=== PATIENT | male | born 1960 | race Caucasian/White ===

== ENCOUNTER 2016-12-26 10:34 | Emergency (ER) | payer MEDICARE ==
--- NOTE | 2016-12-26 10:41 | ED ---
Respiratory - HPI Summary HPI Summary: 56 YEAR OLD MALE WITH COPD/SMOKER PRESENTS WITH COMPLAINS OF LEFT SIDED CHEST PAIN . EKG SHOWED ST ELEVATION IN THE INFERIOR LEADS SO WE WILL CALL EMS TO BRING HIM TO [facility] [place] AND RULE OUT CO. - History of Current Complaint Stated Complaint: COUGH,CHEST/RIB PAIN Time Seen by Provider: 12/26/16 10:41 Onset/Duration: Sudden Onset Initial Severity: Moderate Current Severity: Moderate Sputum Amount: None Aggravating Factor(s): Nothing Alleviating Factor(s): Nothing - Allergy/Home Medications Allergies/Adverse Reactions: Allergies Allergy/AdvReac Type Severity Reaction Status Date / Time No Known Allergies Allergy Verified 12/26/16 10:48 Home Medications: Home Medications Apixaban* [Eliquis*] 5 mg PO BID 12/26/16 [History Confirmed 12/26/16] Pantoprazole Sodium [Protonix] 20 mg PO DAILY 12/26/16 [History Confirmed ] Ranitidine HCl [Zantac] 300 mg PO QPM 12/26/16 [History Confirmed 12/26/16] rOPINIRole TAB* [Requip*] 4 mg PO DAILY 12/26/16 [History Confirmed 12/26/16] PMH/Surg Hx/FS Hx/Imm Hx Previously Healthy: Yes Endocrine/Hematology History: Denies: Hx Diabetes Cardiovascular History: Denies: Hx Congestive Heart Failure, Hx Hypertension Respiratory History: Reports: Other Respiratory Problems/Disorders - LUNG CA History: Denies: Hx Renal Disease - Cancer History Cancer Type, Location and Year: LUNG CA - Social History Alcohol Use: Occasionally Substance Use Type: Reports: None Smoking Status (MU): Heavy Every Day Tobacco Smoker Review of Systems Constitutional: Negative Eyes: Negative ENT: Negative Positive: Chest Pain Respiratory: Negative Gastrointestinal: Negative Genitourinary: Negative Musculoskeletal: Negative All Other Systems Reviewed And Are Negative: Yes Physical Exam Triage Information Reviewed: Yes Vital Signs Reviewed: Yes Appearance: Positive: Ill-Appearing Eyes: Positive: Normal ENT: Positive: Normal ENT inspection Neck: Positive: Supple Respiratory/Lung Sounds: Positive: Clear to Auscultation Cardiovascular: Positive: Tachycardia Abdomen Description: Positive: Nontender Bowel Sounds: Positive: Present Musculoskeletal: Positive: Normal Neurological: Positive: Normal Disposition - Diagnoses Provider Diagnoses: Chest pain Discharge - Discharge Plan Condition: Guarded Disposition: TRANS [facility] CARE FAC Referrals: Non Staff,Doctor [Primary Care Provider] - Additional Instructions: PATIENT TRANSFERED TO [facility] BY EMS
[2016-12-26] MEDS ORDERED: Albuterol/Ipratropium NEB.SOL* Albuterol 2.5 MG/Ipratropium 0.5 MG 3 ML INH ONE (10:44)
[2016-12-26] MEDS ORDERED: predniSONE TAB* 20 MG PO ONE (10:45)
[2016-12-26] MEDS ORDERED: NS 0.9% 1000 ML* 1,000 ML IV ONE (10:56)
[2016-12-26] MEDS ORDERED: Aspirin Low Dose CHEW TAB* 81 MG ONE (11:08)
[2016-12-26] MEDS ORDERED: Aspirin Low Dose CHEW TAB* 81 MG PO ONE (11:11)
[2016-12-26] MEDS ORDERED: Nitroglycerin TAB 0.4 MG* 0.4 MG TAB SL ONE (11:11)
[2016-12-26 11:22] VITALS: BP 135/97
== END 2016-12-26 11:19 | disposition short-term general hospital (02) ==
LOC: UCCORT 10:34
DX: R07.9 Chest pain, unspecified (principal); J44.9 Chronic obstructive pulmonary disease, unspecified; Z72.0 Tobacco use
CPT/HCPCS: 93005; 99214; A9270-GY; G0463

== ENCOUNTER 2016-12-26 12:01 | Emergency (ER) | payer MEDICARE ==
[2016-12-26] MEDS ORDERED: Aspirin Low Dose CHEW TAB* 81 MG PO ONE (12:40)
[2016-12-26] MEDS ORDERED: Nitroglycerin TAB 0.4 MG* 0.4 MG TAB SL ONE (12:44)
--- NOTE | 2016-12-26 13:43 | RAD ---
HISTORY: Chest pain COMPARISONS: CT dated October 16, 2014 VIEWS: 1: frontal portable view of the chest at 1:13 PM FINDINGS: LINES AND TUBES: None. CARDIOMEDIASTINAL SILHOUETTE: Again noted is a right paramediastinal density corresponding to the areas of fibrosis of the right upper lung on the previous examination. Accounting for differences in technique, this is stable. PLEURA: The costophrenic angles are sharp. No pleural abnormalities are noted. LUNG PARENCHYMA: The lungs are clear. ABDOMEN: The upper abdomen is clear. There is no subphrenic gas. BONES AND SOFT TISSUES: No bone or soft tissue abnormalities are noted. IMPRESSION: STABLE DENSITY ALONG THE RIGHT UPPER MEDIASTINUM, UNCHANGED FROM CT DATED OCTOBER 16, 2014.
[2016-12-26] MEDS ORDERED: Ondansetron INJ* 2 MG/ML VIAL IV ONE (15:07)
[2016-12-26] MEDS ORDERED: Morphine INJ* 4 MG/ML 1 ML SYRINGE IV ONE (15:07)
[2016-12-26 15:08] LABS: Hematocrit 45 % (42-52); Hemoglobin 14.8 g/dl (14.0-18.0); Mean Corpuscular HGB Conc 33 g/dl (31-36); Mean Corpuscular Hemoglobin 29 pg (27-31); Mean Corpuscular Volume 88 fL (80-94); Mean Platelet Volume 11 um3 (7.4-10.4); Red Blood Count 5.13 10^6/ul (4.0-5.4); Red Cell Distribution Width 16 % (10.5-15); White Blood Count 7.6 10^3/ul (3.5-10.8)
[2016-12-26 15:17] LABS: Albumin 3.9 g/dL (3.2-5.2); Calcium 8.9 mg/dL (8.6-10.3); EGFR African American 131.9 (>60); EGFR Non-African American 102.6 (>60); Globulin 2.6 g/dL (2-4); Potassium 4.1 mmol/L (3.5-5.0); Total Bilirubin 0.6 mg/dL (0.2-1.0); Total Protein 6.5 g/dL (6.4-8.9)
[2016-12-26] MEDS ORDERED: Iohexol 350* (CONTRAST) 500 ML MDV IV ONE (15:35)
[2016-12-26 16:42] VITALS: BP 109/69
--- NOTE | 2016-12-26 16:44 | RAD ---
Indication: Pleuritic chest pain. Contrast: Administered 81.1 ml of OMNIPAQUE 350 mg/ml CTA of the chest was performed after IV contrast administration. Coronal and sagittal reconstructed images were obtained. The pulmonary arterial tree is well opacified. There are no filling defects present to suggest pulmonary embolus. The trachea and major bronchi appear patent. There is consolidation in the posterior superior segment of the right upper lobe posteriorly. This is likely due to post radiation change. This was present on previous exam of July 21, 2011. No definite alveolar consolidation is noted. No pleural fluid is identified. There is nonspecific peripheral nodule in the right lower lobe in the right costophrenic angle which was present previously on October 16, 2014. The axilla demonstrates no evidence of abnormal adenopathy. The visualized abdominal organs are unremarkable. There is a hernia of the left lobe of liver to be adjacent to the heart. This is consistent with Morgagni type hernia. A small pericardial effusion is noted. 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 Post radiation changes in the posterior medial right upper lobe. Persistent likely benign nodule in the right costophrenic angle. No new lesions are noted.
[2016-12-26] MEDS ORDERED: Albuterol/Ipratropium NEB.SOL* Albuterol 2.5 MG/Ipratropium 0.5 MG 3 ML INH ONE (17:08)
[2016-12-26] MEDS ORDERED: Ketorolac INJ* 30 MG/ML 1 ML VIAL IV PUSH ONE (17:09)
[2016-12-26] MEDS ORDERED: methylPREDNISolone 125 MG* 2 ML VIAL IV ONE (17:30)
--- NOTE | 2017-01-04 12:04 | ED ---
Kerri Bui Thomas, scribed for Nimesh Portillo MD on 12/26/16 at 1250 . HPI Chest Pain - HPI Summary HPI Summary: The pt is a 56 y/o M BIB [place] [facility] [place] c/o R-sided intermittent CP that began weeks ago but has worsened over the last week. The CP radiates to his back and is reproducible. The pt rates the pain 10/10 when he coughs and 5/10 at baseline. The pain is aggravated by deep breaths and movement. 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 He also took 4 pills of ASA 81mg. Pt additionally c/o productive painful cough (yellow phlegm). He is on Eliquis and Rantodine. He drove 16 hours from [place] three days ago without stopping. PMHx: lung CA (Dx 2005, right lung, treated with radiation therapy and chemotherapy, Dr. Liu is his oncologist), pleurisy, A-Fib, cardiac tamponade (2015, [facility] PSHx: pericardiocentesis. SHx: smoking, occasional alcohol use, no illicit drug use. FHx: arrhythmia. He is accompanied by four family members. - History of Current Complaint Chief Complaint: EDChestPainROMI Time Seen by Provider: 12/26/16 12:29 Hx Obtained From: Patient, Family/Hose Maker - four family members in room Onset/Duration: Started Weeks Ago, Still Present, Worse Since - last week Timing: Intermittent Pain Intensity: 5 - 10/10 at worst Pain Scale Used: 0-10 Numeric Chest Pain Location: Discrete at: - R-sided Chest Pain Radiates: Yes Chest Pain Radiates To:: Back Aggravating Factor(s): Movement, Deep Breaths Alleviating Factor(s): NTG 123 Associated Signs and Symptoms: Positive: Chest Pain, Productive Cough - yellow phlegm, painful - Allergy/Home Medications Allergies/Adverse Reactions: Allergies Allergy/AdvReac Type Severity Reaction Status Date / Time No Known Allergies Allergy Verified 12/26/16 10:48 PMH/Surg Hx/FS Hx/Imm Hx Previously Healthy: No Endocrine/Hematology History: Denies: Hx Diabetes Cardiovascular History: Denies: Hx Congestive Heart Failure, Hx Hypertension Respiratory History: Reports: Hx Chronic Obstructive Pulmonary Disease (COPD), Other Respiratory Problems/Disorders - LUNG CA, Pleurisy History: Denies: Hx Renal Disease - Cancer History Cancer Type, Location and Year: LUNG CA Infectious Disease History: Yes Infectious Disease History: Denies: Traveled Outside the [place] in Last 30 Days - Family History Known Family History: Positive: Other - POS: arrythmia - Social History Alcohol Use: Occasionally Substance Use Type: Reports: None Smoking Status (MU): Heavy Every Day Tobacco Smoker Review of Systems Negative: Fever, Chills Negative: Erythema - eyes Negative: Sore Throat Positive: Chest Pain - onset weeks ago but worse in the last week Positive: Cough - productive, painful, yellow phlegm. Negative: Shortness Of Breath Negative: Abdominal Pain, Diarrhea, Nausea Negative: dysuria, hematuria Negative: Myalgia, Edema - leg Negative: Rash Neurological: Other - NEG: dizziness All Other Systems Reviewed And Are Negative: Yes Physical Exam - Summary Physical Exam Summary: Constitutional: Well-developed, Well-nourished, Alert, Active, Social smile present. (-) Distressed, (-) Diaphoretic HENT: Anterior fontanelle flat, Right TM normal and Left TM normal, Normal nose , Mucous membranes moist, Dentition normal, Oropharynx clear. (-) Cranial deformity Eyes: Conjunctiva normal, EOM intact, PERRL. (-) Left and right eye discharge Neck: ROM normal, Neck supple. (-) Cervical adenopathy Cardio: Rhythm regular, rate normal, Heart sounds normal, S1 normal, S2 normal, Intact distal pulses, Pulses strong. (-) Murmur Pulmonary/Chest wall: Effort normal, Diffuse wheezing, worse on the right than the left. There are rhonchi. (-) Retraction, (-) Respiratory distress, (-) Rales , (-) Stridor, (-) Nasal flaring Abd: Soft. (-) Distension, (-) Tenderness, (-) Guarding, (-) Rebound, (-) Hepatosplenomegaly, (-) Mass Musculoskeletal: Normal ROM. (-) Edema Lymph: (-) Cervical adenopathy Neuro: Alert Skin: Warm, Dry. (-) Rash, (-) Purpura, (-) Diaphoresis, (-) Petechiae, (-) Cyanosis Triage Information Reviewed: Yes Vital Signs On Initial Exam: Initial Vitals Temp Pulse Resp Pulse Ox 98.5 F 95 18 93 12/26/16 12:03 12/26/16 12:03 12/26/16 12:03 12/26/16 12:03 Vital Signs Reviewed: Yes - Radha Coma Scale Coma Scale Total: 15 Diagnostics - Vital Signs Vital Signs Temp Pulse Resp BP Pulse Ox 12/26/16 12:22 95 21 97 12/26/16 12:06 98.2 F 96 22 116/71 94 12/26/16 12:03 98.5 F 95 18 93 - Laboratory Result Diagrams: 12/26/16 12:15 12/26/16 12:15 Lab Statement: Any lab studies that have been ordered have been reviewed, and results considered in the medical decision making process. - Radiology CXR Xray Interpretation: Positive (See Comments) - CXR reveals STABLE DENSITY ALONG THE RIGHT UPPER MEDIASTINUM, UNCHANGED FROM CT DATED OCTOBER 16, 2014. ED physician has reviewed this radiology report and agrees. 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 Post radiation changes in the posterior medial right upper lobe. Persistent likely benign nodule in the right costophrenic angle. No new lesions are noted. ED physician has reviewed this radiology report and agrees. CT Interpretation Completed By: Radiologist - EKG 12:19 Cardiac Rate: NL - 94 BPM EKG Interpretation: ST elevations between 0.5 and 1 mm in II, III, and aVL leads Chest Pain Course/Dx - Course Assessment/Plan: The pt is a 56 y/o M BIB EMS from [facility] [place] c/o R-sided intermittent CP that began weeks ago but has worsened over the last week. The CP radiates to his back and is reproducible. The pt rates the pain 10/10 when he coughs and 5/10 at baseline. The pain is aggravated by deep breaths and movement. 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 He also took 4 pills of ASA 81mg. Pt additionally c/o productive painful cough (yellow phlegm). He is on Eliquis and Rantodine. He drove 16 hours from [place] three days ago without stopping. PMHx: lung CA (Dx 2005 , right lung, treated with radiation therapy and chemotherapy, Dr. Liu is his oncologist), pleurisy, A-Fib, cardiac tamponade (2016, [facility]). PSHx : pericardiocentesis. SHx: smoking, occasional alcohol use, no illicit drug use. FHx: arrhythmia. He is accompanied by four family members. In the ED course the patient was given ASA, Duoneb, Toradol, Morhpine, Zofran, Solu-Medrol , and NTG. Bloodwork shows BNP 103, troponin 0.00. EKG at 12:[address] elevations. 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 Post radiation changes in the posterior medial right upper lobe. Persistent likely benign nodule in the right costophrenic angle. No new lesions are noted. ED physician has reviewed this radiology report and agrees. CXR reveals STABLE DENSITY ALONG THE RIGHT UPPER MEDIASTINUM, UNCHANGED FROM CT DATED OCTOBER 16, 2014. ED physician has reviewed this radiology report and agrees. I consulted with Dr. Sanchez, cardiology, regarding patient care. The patient is diagnosed with pericardial effusion and bronchitis. He is diagnosed home and is stable. He was given follow up to cardiology and [facility] physician referral service. - Diagnoses Provider Diagnoses: Pericardial effusion, Bronchitis - Provider Notifications Discussed Care Of Patient With: Jimi Sanchez Time Discussed With Above Provider: 13:06 Instructed by Provider To: Other - I consulted with Dr. Sanchez, cardiology, regarding patient care at 13:06 Discharge - Discharge Plan Condition: Stable Disposition: HOME Patient Education Materials: Pericardial Effusion (ED), Acute Bronchitis (ED) Referrals: [facility] PHYSICIAN REFERRAL [Outside] - 7 Days Rajat Navarro MD [Medical Doctor] - 3 Days Additional Instructions: RETURN TO THE EMERGENCY DEPARTMENT FOR CHANGING OR WORSENING SYMPTOMS The documentation as recorded by the Kerri ruiz Thomas accurately reflects the service I personally performed and the decisions made by me, Nimesh Portillo MD.
== END 2016-12-26 17:59 | disposition home or self-care (01) ==
LOC: ED 12:01
DX: I31.3 Pericardial effusion (noninflammatory) (principal); J40 Bronchitis, not specified as acute or chronic; Z85.118 Personal history of other malignant neoplasm of bronchus and lung; Z92.3 Personal history of irradiation; J44.9 Chronic obstructive pulmonary disease, unspecified; Z72.0 Tobacco use
CPT/HCPCS: 36415; 71010; 71275; 80053; 83880; 84484; 85025; 87040; 93005; 94640; 96374; 96375; 99284; A9270-GY; J1885; J2270; J2405; J2930; Q9967

== ENCOUNTER 2017-01-07 10:15 | Emergency (ER) | payer MEDICARE ==
[2017-01-07 10:36] VITALS: BP 109/70
[2017-01-07] MEDS ORDERED: Morphine INJ* 2 MG/ML 1 ML CARPUJECT IV ONE ×2 (11:06→11:08)
--- NOTE | 2017-01-07 11:06 | ED ---
HPI Chest Pain - HPI Summary HPI Summary: 56 yr old male with the complaint of chest pain. Onset of pain over a week ago , and pain is pleuritic, with sob, and worsening symptoms the past week. He feels weak, tired, SOB, and pain is 9/10, worse with breathing. He was seen in the [facility] ER on December 26 and diagnosed with pericardial effusion, and hernia containing liver near his heart. he has a history of lung cancer. His doctors are at [facility] in [place] including oncology, cardiology. The patient is requesting to go to [facility] by ambulance from here. - History of Current Complaint Chief Complaint: UCChestPain Time Seen by Provider: 01/07/17 10:42 - Allergy/Home Medications Allergies/Adverse Reactions: Allergies Allergy/AdvReac Type Severity Reaction Status Date / Time No Known Allergies Allergy Verified 01/07/17 10:37 PMH/Surg Hx/FS Hx/Imm Hx Endocrine/Hematology History: Denies: Hx Diabetes Cardiovascular History: Denies: Hx Congestive Heart Failure, Hx Hypertension Respiratory History: Reports: Hx Chronic Obstructive Pulmonary Disease (COPD), Other Respiratory Problems/Disorders - LUNG CA, Pleurisy History: Denies: Hx Renal Disease - Cancer History Cancer Type, Location and Year: LUNG CA - Surgical History Surgery Procedure, Year, and Place: peptic ulcer, cardiac effusion drainage opening present Infectious Disease History: No Infectious Disease History: Denies: Traveled Outside the [place] in Last 30 Days - Family History Known Family History: Positive: Other - POS: arrythmia - Social History Alcohol Use: Occasionally Alcohol Amount: 2-3 beers when drinking Substance Use Type: Reports: None Smoking Status (MU): Heavy Every Day Tobacco Smoker Review of Systems Positive: Chest Pain, Other - per he at times seems to pass out and eyes roll back in head Positive: Shortness Of Breath All Other Systems Reviewed And Are Negative: Yes Physical Exam Triage Information Reviewed: Yes Vital Signs On Initial Exam: Initial Vitals Temp Pulse Resp BP Pulse Ox 98.1 F 97 24 109/70 98 01/07/17 10:24 01/07/17 10:24 01/07/17 10:24 01/07/17 10:24 01/07/17 10:24 Vital Signs Reviewed: Yes Appearance: Positive: Pain Distress Skin: Positive: Warm, Skin Color Reflects Adequate Perfusion Head/Face: Positive: Normal Head/Face Inspection Eyes: Positive: EOMI ENT: Negative: Muffled/hoarse voice Neck: Positive: Supple Respiratory/Lung Sounds: Positive: Clear to Auscultation, Breath Sounds Present , Other - appear mildy dyspneic. Negative: Stridor Cardiovascular: Positive: RRR. Negative: Murmur Abdomen Description: Positive: Nontender Neurological: Positive: Sensory/Motor Intact, Alert, Oriented to Person Place, Time, CN Intact II-III Psychiatric: Positive: Anxious Diagnostics - Vital Signs Vital Signs Temp Pulse Resp BP Pulse Ox 01/07/17 10:24 98.1 F 97 24 109/70 98 - Laboratory Lab Statement: Any lab studies that have been ordered have been reviewed, and results considered in the medical decision making process. Chest Pain Course/Dx - Course Course Of Treatment: 56 yr old male who never followed up with Cardiology as planned 3 days after discharge from the ED on Dec. He appears a little SOB and in pain. He has a known pericardial effusion on CT and has had effusion drained in prior year. He has an EKG that is not changed compared to tracing from December 26 of this year. case Discussed with Dr Handley at [facility]. The patient requested to go to [facility] as his doctors are there including oncology, cardiology. He will need at the least an echocardiogram and cardiology consultation. - Diagnoses Provider Diagnoses: Chest pain, Pericardial effusion Discharge - Discharge Plan Condition: Good Disposition: TRANS [facility] CARE FAC
[2017-01-07] MEDS ORDERED: NS 0.9% 1000 ML* 1,000 ML IV ONE (11:07)
[2017-01-07] MEDS ORDERED: Morphine INJ* 2 MG/ML 1 ML CARPUJECT ONE (11:25)
== END 2017-01-07 11:35 | disposition short-term general hospital (02) ==
LOC: UCCORT 10:15
DX: I31.3 Pericardial effusion (noninflammatory) (principal); R07.9 Chest pain, unspecified; I10 Essential (primary) hypertension; I50.9 Heart failure, unspecified; J44.9 Chronic obstructive pulmonary disease, unspecified; F17.200 Nicotine dependence, unspecified, uncomplicated; Z85.118 Personal history of other malignant neoplasm of bronchus and lung
CPT/HCPCS: 93005; 96372; 96374; 99213; G0463; J2270

== ENCOUNTER 2017-01-07 12:18 | Inpatient (IN) | payer MEDICARE ==
[2017-01-07] MEDS ORDERED: Aspirin Low Dose CHEW TAB* 81 MG PO ONE (12:22)
[2017-01-07 12:46] LABS: Hematocrit 45 % (42-52); Hemoglobin 14.7 g/dl (14.0-18.0); Mean Corpuscular HGB Conc 32 g/dl (31-36); Mean Corpuscular Hemoglobin 29 pg (27-31); Mean Corpuscular Volume 89 fL (80-94); Mean Platelet Volume 10 um3 (7.4-10.4); Red Blood Count 5.12 10^6/ul (4.0-5.4); Red Cell Distribution Width 15 % (10.5-15); White Blood Count 7.9 10^3/ul (3.5-10.8)
[2017-01-07 13:06] LABS: Albumin 3.7 g/dL (3.2-5.2); BUN/Creatinine Ratio 14.4 (8-20); Calcium 9.3 mg/dL (8.6-10.3); EGFR African American 111.9 (>60); Globulin 3.1 g/dL (2-4); Potassium 4.2 mmol/L (3.5-5.0); Total Bilirubin 0.7 mg/dL (0.2-1.0); Total Protein 6.8 g/dL (6.4-8.9)
--- NOTE | 2017-01-07 13:22 | RAD ---
HISTORY: Chest pain, pericardial effusion, pneumonia COMPARISONS: December 26, 2016 VIEWS: 4: Frontal dual-energy and lateral views of the chest. FINDINGS: CARDIOMEDIASTINAL SILHOUETTE: Again noted is a right paramediastinal density, stable from the previous examination. OSCAR: The oscar are normal. PLEURA: The costophrenic angles are sharp. No pleural abnormalities are noted. LUNG PARENCHYMA: The lungs are clear. ABDOMEN: The upper abdomen is clear. There is no subphrenic gas. BONES AND SOFT TISSUES: No bone or soft tissue abnormalities are noted. OTHER: None. IMPRESSION: NO ACTIVE CARDIOPULMONARY DISEASE.
[2017-01-07] MEDS ORDERED: Morphine INJ* 4 MG/ML 1 ML CARPUJECT IV ONE (13:53)
[2017-01-07] MEDS ORDERED: Al Hydrox/Mg Hydrox/Simet LIQ* 30 ML UDC PO PRN (14:33)
[2017-01-07] MEDS: methylPREDNISolone SOD 40 MG* 1 ML VIAL IV SCH ×2 (15:21→23:20)
[2017-01-07 15:24] LABS: TSH (Thyroid Stimulating Horm) 3.91 mcIU/mL (0.34-5.60)
--- NOTE | 2017-01-07 16:01 | ED ---
Aldo Bui Angela, scribed for Patrick Handley MD on 01/07/17 at 1304 . HPI Chest Pain - HPI Summary HPI Summary: This pt is a 56 y/o male BIBA presenting to [facility] c/o pleuritic chest pain since 12/26/16. Pt reports a cough he has had since 12/26/16. He notes LE pain and swelling intermittently for the past year. His chest pain is aggravated when in a supine position and alleviated when sitting up. Pt states associated symptoms of feeling hot, wheezing, and back pain. He reports SOB when ambulating. Pt is on 2L of home O2 PRN. Pt was seen in the ED on 12/26/16 and was diagnosed with pericardial effusion and hernia containing liver near his heart. He is a current smoker. Pt is on remission from lung CA, used to see Dr. Alicea. Pt is on Elaquis for lung CA. He denies PMHx of NC. - History of Current Complaint Chief Complaint: EDChestPainROMI Time Seen by Provider: 01/07/17 12:40 Hx Obtained From: Patient Onset/Duration: Started Weeks Ago Timing: Lasting Weeks Pain Intensity: 10 Associated Signs and Symptoms: Positive: Chest Pain, Cough, Back Pain, Calf Pain /Swelling, Wheezing, Other: - gets hot easily. Negative: Numbness, Tingling, Weakness - Allergy/Home Medications Allergies/Adverse Reactions: Allergies Allergy/AdvReac Type Severity Reaction Status Date / Time No Known Allergies Allergy Verified 01/07/17 10:37 PMH/Surg Hx/FS Hx/Imm Hx Endocrine/Hematology History: Denies: Hx Diabetes Cardiovascular History: Reports: Hx Atrial Fibrillation - s/t cardiac tamponade Denies: Hx Congestive Heart Failure, Hx Hypertension Respiratory History: Reports: Hx Chronic Obstructive Pulmonary Disease (COPD), Other Respiratory Problems/Disorders - LUNG CA, Pleurisy History: Denies: Hx Renal Disease - Cancer History Cancer Type, Location and Year: LUNG CA - Surgical History Surgery Procedure, Year, and Place: peptic ulcer, cardiac effusion drainage opening present Infectious Disease History: No Infectious Disease History: Denies: Traveled Outside the [place] in Last 30 Days - Family History Known Family History: Positive: Other - POS: arrythmia - Social History Alcohol Use: Occasionally Alcohol Amount: 2-3 beers when drinking Substance Use Type: Reports: None Smoking Status (MU): Heavy Every Day Tobacco Smoker Review of Systems Negative: Fever, Chills Eyes: Negative ENT: Negative Positive: Chest Pain Positive: Shortness Of Breath, Cough, Other - wheezing Negative: Abdominal Pain, Vomiting, Diarrhea, Nausea Genitourinary: Negative Positive: Other - back pain Skin: Negative Positive: Syncope All Other Systems Reviewed And Are Negative: Yes Physical Exam - Summary Physical Exam Summary: The patient is well-nourished in mild cute distress. The skin is warm and dry and skin color reflects adequate perfusion. HEENT: The head is normocephalic and atraumatic. The pupils are equal and reactive. The conjunctivae are clear and without drainage. Nares are patent and without drainage. Mouth reveals moist mucous membranes and the throat is without erythema and exudate. The external ears are intact. The ear canals are patent and without drainage. The tympanic membranes are intact. Neck is supple with full range of motion and non-tender. There are no carotid bruits. There is no neck vein distension. Respiratory: Chest is non-tender. There are diminished breath sounds with occasional wheezes. Cardiovascular: Hear is regular rate and rhythm. There is no murmur or rub auscultated. There is peripheral edema bilaterally. Abdomen: The abdomen is soft. There is epigastric pain and right-sided abd pain. There are normal bowel sounds heard in all four quadrants. Musculoskeletal: There is no back pain noted. Extremities are non-tender with full range of motion. There is good capillary refill. There is peripheral edema of bilateral legs. There is good distal pulses. There is no calf tenderness. Neurological: Patient is alert and oriented to person, place and time. The patient has symmetrical motor strength in all four extremities. Psychiatric: The patient has an appropriate affect and does not exhibit any anxiety or depression. Triage Information Reviewed: Yes Vital Signs On Initial Exam: Initial Vitals BP 130/86 01/07/17 12:26 Temperature: 97.7 Pulse: 95 Respiration: 20 Oxygen: 95 Vital Signs Reviewed: Yes - Gerlaw Coma Scale Coma Scale Total: 15 Diagnostics - Vital Signs Vital Signs Temp Pulse Resp BP Pulse Ox 01/07/17 12:32 97.7 F 95 20 121/70 95 01/07/17 12:31 96 01/07/17 12:29 17 01/07/17 12:26 130/86 - Laboratory Lab Results: Lab Results 01/07/17 Range/Units 12:37 WBC 7.9 (3.5-10.8) 10^3/ul RBC 5.12 (4.0-5.4) 10^6/ul Hgb 14.7 (14.0-18.0) g/dl Hct 45 (42-52) % MCV 89 (80-94) fL MCH 29 (27-31) pg MCHC 32 (31-36) g/dl RDW 15 (10.5-15) % Plt Count 123 L (150-450) 10^3/ul MPV 10 (7.4-10.4) um3 Neut % (Auto) 75.8 (38-83) % Lymph % (Auto) 12.6 L (25-47) % Labette % (Auto) 7.3 (1-9) % Eos % (Auto) 3.5 (0-6) % Baso % (Auto) 0.8 (0-2) % Absolute Neuts (auto) 6.0 (1.5-7.7) 10^3/ul Absolute Lymphs (auto) 1.0 (1.0-4.8) 10^3/ul Absolute Monos (auto) 0.6 (0-0.8) 10^3/ul Absolute Eos (auto) 0.3 (0-0.6) 10^3/ul Absolute Basos (auto) 0.1 (0-0.2) 10^3/ul Absolute Nucleated RBC 0 10^3/ul Nucleated RBC % 0 Result Diagrams: 01/07/17 12:37 01/07/17 12:37 Lab Statement: Any lab studies that have been ordered have been reviewed, and results considered in the medical decision making process. - Radiology Chest XR Xray Interpretation: No Acute Changes - IMPRESSIOn: No active cardiopulmonary disease. ED physician has reviewed this radiology report and agrees. Radiology Interpretation Completed By: Radiologist - EKG 1237 Cardiac Rate: NL EKG Rhythm: Sinus Rhythm EKG Interpretation: ST elevation on II, III, and aVF. Poor R wave progression. No STEMI. EKG Comparison: No Significant Change - from prior EKG from earlier today. Chest Pain Course/Dx - Course Assessment/Plan: Pt is a 56 y/o male BIBA presenting to the ED c/o pleuritic chest pain since 12/26/16. Labs and chest XR were obtained. Chest XR shows no acute cardiopulmonary disease. I spoke with Dr. Dillon, who will admit he pt. - Chest Pain Differential Diagnosis/HQI/PQRI: Acute NC, ACS, CHF, Lower Respiratory Infection , Pulmonary Edema, Other: - pericarditis, bronchitis - Diagnoses Provider Diagnoses: Chest pain - Provider Notifications Discussed Care Of Patient With: Bud Dillon Time Discussed With Above Provider: 13:41 Instructed by Provider To: Other - I discussed the pt's case with Dr. Dillon. He has agreed to admit the pt. Discharge - Discharge Plan Condition: Stable Disposition: ADMITTED TO [facility] Referrals: Non Staff,Doctor [Primary Care Provider] - The documentation as recorded by the Aldo ruiz Angela accurately reflects the service I personally performed and the decisions made by me, Patrick Handley MD.
[2017-01-07] MEDS: Azithromycin IV(*) 250 MG in NS 0.9% 250 ML* 250 ML IVPB SCH (16:57)
[2017-01-07] MEDS: Ipratropium 0.5MG/2.5ML NEB* 0.5 MG/2.5 ML NEB.SOLN INH SCH ×3 (17:22→23:18)
[2017-01-07] MEDS: Albuterol 2.5 MG/3 ML NEB.SOL* (0.083%) INH SCH ×3 (17:22→23:18)
[2017-01-07] MEDS: Famotidine TAB* 20 MG PO SCH (17:24)
[2017-01-07] MEDS: HYDROMORPHONE 2 MG/ML IV SLOW PU PRN (17:51)
--- NOTE | 2017-01-07 18:12 | HP ---
HISTORY AND PHYSICAL: DATE OF ADMISSION: 01/07/17 CHIEF COMPLAINT: Cough, chest pain, and shortness of breath. HISTORY OF PRESENT ILLNESS: This is a 56-year-old man with a history of emphysema and lung cancer, presenting with a violent cough productive of yellow sputum, chest pain, and shortness of breath for the past 2 weeks. The symptoms first began with a cough and his fiancee described episodes of paroxysms of coughing fits that occasionally lead to him passing out. The cough has continued to progress over the past 2 weeks and cause band-like chest pain along his ribs. He notes some chills; however, has not taken his temperature. He does have p.r.n. home O2, but he has not been using it. On a good day, he is able to walk less than a city block; however, over the past 2 weeks, he has had difficulty ambulating around his house without becoming short of breath. He denies chest pain with exertion. Chest pain only comes with coughing fits. Pain is not worsened by deep inspiration. He denies travel or sick contacts. He does have a nebulizer machine at home that he has used occasionally but is unsure if it has been helpful. He cannot remember the last time he was on steroids. His fiancee explains that occasionally his coughing fits are so violent that she believes he blacks out and has a seizure. He recalls these events and explains that he coughs so hard that he shakes. No urinary or fecal incontinence is noted. He has never required intubation. He did receive his flu vaccination but has never gotten a Pneumovax. PAST MEDICAL HISTORY: Pericardial window in 2014. He and his family are unsure of the etiology or why this was placed. Lung cancer in 2005. This was treated with chemotherapy and radiation and is reportedly in remission. Hiatal hernia; esophageal stricture, status post dilation; COPD; gastric ulcers; obstructive sleep apnea, for which he does not wear CPAP; paroxysmal atrial fibrillation. MEDICATIONS: ED course: He was given aspirin 325 mg and morphine 4 mg IV. ALLERGIES: No known drug allergies. SOCIAL HISTORY: He has a 30- to 54-mmsm-plze smoking history. 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 He lives with his fihugheBree. Her phone number is [phone]. He is full code and would be willing to be intubated if required. REVIEW OF SYSTEMS: Positive for intentional weight loss and chills. Denies sweats, denies palpitations. Denies exertional chest pain. Denies nausea, vomiting, constipation, diarrhea. Denies headaches. Does note occasional lower extremity edema. No orthopnea. PHYSICAL EXAMINATION GENERAL: Alert, obese man with a plethoric face. No conjunctival injection. VITAL SIGNS: Temp 97.7, heart rate 94, respiratory rate 14, pulse ox 95% on room air, blood pressure 121/70. HEENT: No pharyngeal exudates or erythema. NECK: No cervical lymphadenopathy. No JVP. Thyroid nonpalpable. LUNGS: Diffusely rhonchorous with end-expiratory wheezing and prolonged expiratory phase. HEART: regular rate and rhythm. No murmurs. PMI nondisplaced. ABDOMEN: Soft, nontender, nondistended. EXTREMITIES: Pulses 2+ bilaterally, strength 5+ throughout. No rashes. DIAGNOSTIC STUDIES AND LAB DATA: Labs on admission, white blood cell 7.9, hemoglobin 14.7, platelets 123. Sodium 136, chloride 100, potassium 4.2, bicarb 30, BUN 13, creatinine 0.90, troponin at 12: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 A chest x-ray today shows no acute cardiopulmonary abnormalities. ASSESSMENT AND PLAN: This is a 56-year-old man with a history of lung cancer, a pericardial window, emphysema, and paroxysmal atrial fibrillation, who is presenting with 2 weeks of dyspnea on exertion, productive cough, and chest pain. 1. Acute chronic obstructive pulmonary disease exacerbation. I suspect this is most likely infectious related given his voluminous sputum production. He has not been hospitalized in the past 3 months and his chest x-ray is negative for pneumonia. Start IV Solu-Medrol, albuterol, and ipratropium and we will start azithromycin for bronchitis/inflammation. He and his family reports having had pulmonary function tests done in [place]. We will attempt to get these records. He has no need for supplemental oxygen at this time. 2. Atypical chest pain. The history is consistent with musculoskeletal pain given his violent coughing fits and pain associated with coughing; however, given his risk factors and his less than [address] elevations in inferior leads on his EKG, he should be monitored on telemetry and ruled out for acute coronary syndrome. It is possible if he has RCA disease, he may have diaphragmatic inflammation or irritation contributing to his cough. His history and ekg are not consistent with pericarditis, though it is unclear why he required a pericardial window several years ago. 3. Obstructive sleep apnea. He refuses CPAP. 4. Paroxysmal atrial fibrillation. He is in normal sinus rhythm here. Continue Eliquis. He is not on any rate control at home. 5. Gastric ulcers. Continue home PPI. 6. Lung cancer. Reportedly in remission. No evidence of recurrence on recent imaging. 7. DVT prophylaxis: He is on therapeutic anticoagulation. 8. Full code with intubation as needed. [id number]/CPS #: [id number] MTDD
[2017-01-07] MEDS ORDERED: Ipratropium 0.5MG/2.5ML NEB* 0.5 MG/2.5 ML NEB.SOLN ONE (19:40)
[2017-01-07] MEDS ORDERED: Albuterol 2.5 MG/3 ML NEB.SOL* (0.083%) ONE (19:40)
[2017-01-07] MEDS: Polyethylene Glycol 3350* 17 GM PACKET PO SCH (20:46)
[2017-01-07] MEDS: Apixaban* 5 MG TAB PO SCH (20:46)
[2017-01-08] MEDS: Ipratropium 0.5MG/2.5ML NEB* 0.5 MG/2.5 ML NEB.SOLN INH SCH ×2 (03:43→09:19)
[2017-01-08] MEDS: Albuterol 2.5 MG/3 ML NEB.SOL* (0.083%) INH SCH ×2 (03:43→09:19)
[2017-01-08] MEDS: HYDROMORPHONE 2 MG/ML IV SLOW PU PRN ×3 (04:14→19:53)
[2017-01-08 05:40] LABS: Hematocrit 45 % (42-52); Hemoglobin 14.6 g/dl (14.0-18.0); Mean Corpuscular HGB Conc 33 g/dl (31-36); Mean Corpuscular Hemoglobin 29 pg (27-31); Mean Corpuscular Volume 89 fL (80-94); Mean Platelet Volume 11 um3 (7.4-10.4); Red Blood Count 5.01 10^6/ul (4.0-5.4); Red Cell Distribution Width 15 % (10.5-15); White Blood Count 10.8 10^3/ul (3.5-10.8)
[2017-01-08 05:52] LABS: BUN/Creatinine Ratio 13.4 (8-20); Calcium 9.1 mg/dL (8.6-10.3); EGFR African American 124.5 (>60); EGFR Non-African American 96.8 (>60); Potassium 4.4 mmol/L (3.5-5.0)
[2017-01-08] MEDS: guaiFENesin/CODIEN 100MG-10MG* 5 ML UDC PO PRN ×2 (08:00→14:41)
[2017-01-08] MEDS: Apixaban* 5 MG TAB PO SCH ×2 (08:00→22:00)
[2017-01-08] MEDS: Polyethylene Glycol 3350* 17 GM PACKET PO SCH (08:00)
[2017-01-08] MEDS: rOPINIRole TAB* 4 MG PO SCH (08:00)
[2017-01-08] MEDS: methylPREDNISolone SOD 40 MG* 1 ML VIAL IV SCH ×3 (08:00→22:00)
[2017-01-08] MEDS ORDERED: Influenza VAC *QUAD* 2017-18* 0.5 ML SYRINGE IM ONE (09:00)
[2017-01-08] MEDS ORDERED: Pantoprazole TAB (NF) 20 MG TAB PO SCH (09:00)
[2017-01-08] MEDS ORDERED: Albuterol/Ipratropium NEB.SOL* Albuterol 2.5 MG/Ipratropium 0.5 MG 3 ML ONE (09:22)
[2017-01-08] MEDS: Albuterol/Ipratropium NEB.SOL* Albuterol 2.5 MG/Ipratropium 0.5 MG 3 ML INH SCH ×3 (09:23→19:25)
[2017-01-08] MEDS ORDERED: Albuterol 2.5 MG/3 ML NEB.SOL* (0.083%) INH PRN (10:51)
[2017-01-08] MEDS ORDERED: Ketorolac INJ* 15 MG/ML 1 ML VIAL IV PUSH PRN (11:15)
[2017-01-08] MEDS ORDERED: Docusate CAP* 100 MG PO ONE (11:18)
[2017-01-08] MEDS ORDERED: Senna TAB PO ONE (11:18)
--- NOTE | 2017-01-08 11:18 | PN ---
Subjective Date of Service: 01/08/17 Interval History: Patient seen this morning. Still complaining of cough, occasionally productive of yellow/morris sputum, non-bloody. Chest pain with coughing only, none at rest. No "passing out" or "seizures" here in the hospital. Not complaining of significant SOB at this time. Says he has had episodes like this in the past every 4-5 months but usually do not require hospitalization and resolve with ABx and steroids. Family History: Unchanged from Admission Social History: Unchanged from Admission Past Medical History: Unchanged from Admission Objective Active Medications: Al Hydrox/Mg Hydrox/Simethicone (Maalox Plus*) 30 ml PO Q6H PRN PRN Reason: INDIGESTION Albuterol (Ventolin 2.5 Mg/3 Ml Neb.Johana*) 2.5 mg INH Q2H PRN PRN Reason: SOB/WHEEZING Albuterol/Ipratropium (Duoneb (Albuterol 2.5 Mg/Ipratropium 0.5 Mg)) 1 neb INH [id number] AWAKE [facility] Last Admin: 01/08/17 09:23 Dose: 1 neb Apixaban (Eliquis*) 5 mg PO BID [facility] Last Admin: 01/08/17 08:00 Dose: 5 mg Famotidine (Pepcid Tab*) 40 mg PO QPM [facility] Last Admin: 01/07/17 17:24 Dose: 40 mg Guaifenesin/Codeine Phosphate (Robitussin Ac 100mg-10mg*) 5 ml PO Q4H PRN PRN Reason: COUGH Last Admin: 01/08/17 08:00 Dose: 5 ml Hydromorphone HCl (Dilaudid Iv*) 2 mg IV SLOW PU Q4H PRN PRN Reason: PAIN Last Admin: 01/08/17 10:44 Dose: 2 mg Azithromycin 250 mg/ Sodium (Chloride) 250 mls @ 250 mls/hr IVPB Q24H [facility] Last Admin: 01/07/17 16:57 Dose: 250 mls/hr Methylprednisolone Sodium Succinate (Solu-Medrol 40 Mg) 40 mg IV Q8H [facility] Last Admin: 01/08/17 08:00 Dose: 40 mg Pantoprazole Sodium (Protonix Tab (Nf)) 20 mg PO DAILY [facility] Polyethylene Glycol/Electrolytes (Miralax*) 17 gm PO DAILY [facility] Last Admin: 01/08/17 08:00 Dose: 17 gm Ropinirole HCl (Requip*) 4 mg PO DAILY [facility] Last Admin: 01/08/17 08:00 Dose: 4 mg Vital Signs 01/07/17 01/07/17 01/07/17 15:00 16:50 17:25 Temperature 97.5 F Pulse Rate 89 93 97 Respiratory 29 24 18 Rate Blood Pressure 120/72 107/69 (mmHg) O2 Sat by Pulse 92 95 97 Oximetry 01/08/17 01/08/17 01/08/17 04:14 05:14 07:39 Temperature 97.6 F Pulse Rate 107 Respiratory 20 19 20 Rate Blood Pressure 115/69 (mmHg) O2 Sat by Pulse 93 Oximetry Oxygen Devices in Use Now: Nasal Cannula - 2L Appearance: Middle-aged, M, laying in bed in NAD Eyes: No Scleral Icterus Ears/Nose/Mouth/Throat: Mucous Membranes Moist Neck: NL Appearance and Movements; NL JVP Respiratory: Symmetrical Chest Expansion and Respiratory Effort, - - Moderate air movement, not much wheezing appreciated, rales in B/L bases Cardiovascular: NL Sounds; No Murmurs; No JVD, - - Tachycardia Abdominal: - - Soft, distended, obese, non-tender, BS+ Lymphatic: No Cervical Adenopathy Extremities: No Edema Skin: No Rash or Ulcers Neurological: Alert and Oriented x 3 Result Diagrams: 01/08/17 04:22 01/08/17 04:22 Microbiology and Other Data: Microbiology 01/08/17 06:52 Gram Stain - Final Sputum Expectorated Assess/Plan/Problems-Billing Assessment: COPD exacerbation in a 56 yo M with hx of COPD, pAF on Eliquis, YOLANDE not on CPAP , GERD and hx of lung cancer - Patient Problems (1) COPD exacerbation Current Visit: Yes Comment: Continue IV steroids, nebs, Azithromycin. Chest pain related to coughing, trial of toradol. Continue guaifenesin. (2) Paroxysmal atrial fibrillation Current Visit: Yes Comment: Continue Eliquis. In NSR. (3) GERD (gastroesophageal reflux disease) Current Visit: Yes Comment: Continue PPI (4) DVT prophylaxis Current Visit: Yes Comment: Eliquis
[2017-01-08] MEDS: PANTOPRAZOLE 40 MG PO SCH (16:38)
[2017-01-08] MEDS: Azithromycin IV(*) 250 MG in NS 0.9% 250 ML* 250 ML IVPB SCH (16:45)
[2017-01-08] MEDS: Famotidine TAB* 20 MG PO SCH (17:44)
[2017-01-09] MEDS: Albuterol/Ipratropium NEB.SOL* Albuterol 2.5 MG/Ipratropium 0.5 MG 3 ML INH SCH ×4 (01:31→20:02)
[2017-01-09] MEDS: Magnesium Hydroxide LIQ* 30 ML UDC PO SCH ×2 (03:44→08:44)
[2017-01-09] MEDS: methylPREDNISolone SOD 40 MG* 1 ML VIAL IV SCH (06:20)
[2017-01-09] MEDS: Apixaban* 5 MG TAB PO SCH ×2 (08:44→20:33)
[2017-01-09] MEDS: PANTOPRAZOLE 40 MG PO SCH (08:44)
[2017-01-09] MEDS: rOPINIRole TAB* 4 MG PO SCH (08:44)
[2017-01-09] MEDS: Polyethylene Glycol 3350* 17 GM PACKET PO SCH (08:44)
[2017-01-09] MEDS ORDERED: Magnesium CITRATE* 300 ML BTL PO ONE (10:21)
[2017-01-09] MEDS ORDERED: oxyCODONE/Acetamin 5/325 MG* TAB PO PRN (10:22)
--- NOTE | 2017-01-09 10:27 | PN ---
Subjective Date of Service: 01/09/17 Interval History: Patient seen this morning. He and his SO feel he is doing much better. Chest pain improved, coughing much less. Able to sleep. Denies SOB. Has ambulated around the unit. Family History: Unchanged from Admission Social History: Unchanged from Admission Past Medical History: Unchanged from Admission Objective Active Medications: Al Hydrox/Mg Hydrox/Simethicone (Maalox Plus*) 30 ml PO Q6H PRN PRN Reason: INDIGESTION Albuterol (Ventolin 2.5 Mg/3 Ml Neb.Johana*) 2.5 mg INH Q2H PRN PRN Reason: SOB/WHEEZING Albuterol/Ipratropium (Duoneb (Albuterol 2.5 Mg/Ipratropium 0.5 Mg)) 1 neb INH [id number] AWAKE [facility] Last Admin: 01/09/17 08:06 Dose: 1 neb Apixaban (Eliquis*) 5 mg PO BID [facility] Last Admin: 01/09/17 08:44 Dose: 5 mg Famotidine (Pepcid Tab*) 40 mg PO QPM [facility] Last Admin: 01/08/17 17:44 Dose: 40 mg Guaifenesin/Codeine Phosphate (Robitussin Ac 100mg-10mg*) 5 ml PO Q4H PRN PRN Reason: COUGH Last Admin: 01/08/17 14:41 Dose: 5 ml Hydromorphone HCl (Dilaudid Iv*) 2 mg IV SLOW PU Q4H PRN PRN Reason: PAIN Last Admin: 01/08/17 19:53 Dose: 2 mg Azithromycin 250 mg/ Sodium (Chloride) 250 mls @ 250 mls/hr IVPB Q24H [facility] Last Admin: 01/08/17 16:45 Dose: 250 mls/hr Ketorolac Tromethamine (Toradol Tab *) 10 mg PO Q6H PRN PRN Reason: PAIN Magnesium Citrate (Citrate Of Magnesia*) 300 ml PO ONCE ONE Stop: 01/09/17 10:22 Oxycodone/Acetaminophen (Percocet 5/325 Tab*) 1 tab PO Q4H PRN PRN Reason: PAIN Pantoprazole Sodium (Protonix Tab (Nf)) 40 mg PO DAILY [facility] Last Admin: 01/09/17 08:44 Dose: 40 mg Polyethylene Glycol/Electrolytes (Miralax*) 17 gm PO DAILY [facility] Last Admin: 01/09/17 08:44 Dose: 17 gm Prednisone (Deltasone Tab*) 40 mg PO DAILY [facility] Ropinirole HCl (Requip*) 4 mg PO DAILY [facility] Last Admin: 01/09/17 08:44 Dose: 4 mg Vital Signs 01/08/17 01/08/17 01/08/17 10:44 11:23 11:44 Temperature 97.8 F Pulse Rate 109 Respiratory 22 20 20 Rate Blood Pressure 104/70 (mmHg) O2 Sat by Pulse 92 Oximetry 01/08/17 01/08/17 01/09/17 20:53 23:21 03:10 Temperature 98.2 F 97.9 F Pulse Rate 103 102 Respiratory 17 18 16 Rate Blood Pressure 105/63 110/71 (mmHg) O2 Sat by Pulse 97 97 Oximetry Oxygen Devices in Use Now: Nasal Cannula - 3L Appearance: Middle-aged, M, laying in bed in NAD Eyes: No Scleral Icterus Ears/Nose/Mouth/Throat: Mucous Membranes Moist Neck: NL Appearance and Movements; NL JVP Respiratory: Symmetrical Chest Expansion and Respiratory Effort, - - no wheezing appreciate, good air movement, no rales Cardiovascular: - - Tachycardia, no m/g/r Abdominal: - - Obese, soft, distended, non-tender Lymphatic: No Cervical Adenopathy Extremities: No Edema Skin: No Rash or Ulcers Neurological: Alert and Oriented x 3 Result Diagrams: 01/08/17 04:22 01/08/17 04:22 Assess/Plan/Problems-Billing Assessment: COPD exacerbation in a 56 yo M with hx of COPD, pAF on Eliquis, YOLANDE not on CPAP , GERD and hx of lung cancer - Patient Problems (1) COPD exacerbation Current Visit: Yes Comment: Continue steroids, transition to PO prednisone, nebs, Azithromycin. Chest pain related to coughing, continue toradol PO, prn percocet. Continue guaifenesin. (2) Paroxysmal atrial fibrillation Current Visit: Yes Comment: Continue Eliquis. In sinus tachycardia (3) Tachycardia Current Visit: Yes Comment: Sinus tach. 2/2 pain, steroids. Monitor over the course of the day and while ambulating. (4) GERD (gastroesophageal reflux disease) Current Visit: Yes Comment: Continue PPI (5) DVT prophylaxis Current Visit: Yes Comment: Eliquis Status and Disposition: Potential discharge later today vs tomorrow
[2017-01-09] MEDS: predniSONE TAB* 20 MG PO SCH (11:54)
[2017-01-09] MEDS: Ketorolac TAB * 10 MG TAB PO PRN (14:49)
[2017-01-09] MEDS: Azithromycin IV(*) 250 MG in NS 0.9% 250 ML* 250 ML IVPB SCH (16:22)
[2017-01-09] MEDS ORDERED: Docusate CAP* 100 MG PO PRN (16:39)
[2017-01-09] MEDS ORDERED: Senna TAB PO PRN (16:39)
[2017-01-09] MEDS ORDERED: Bisacodyl EC TAB* 5 MG PO ONE (16:39)
[2017-01-09] MEDS: Famotidine TAB* 20 MG PO SCH (16:53)
[2017-01-10] MEDS: Albuterol/Ipratropium NEB.SOL* Albuterol 2.5 MG/Ipratropium 0.5 MG 3 ML INH SCH ×3 (01:29→13:36)
[2017-01-10 08:45] VITALS: BP 122/75
[2017-01-10] MEDS: Polyethylene Glycol 3350* 17 GM PACKET PO SCH (08:46)
[2017-01-10] MEDS: predniSONE TAB* 20 MG PO SCH (08:46)
[2017-01-10] MEDS: Apixaban* 5 MG TAB PO SCH (08:47)
[2017-01-10] MEDS: PANTOPRAZOLE 40 MG PO SCH (08:48)
[2017-01-10] MEDS: rOPINIRole TAB* 4 MG PO SCH (08:48)
[2017-01-10] MEDS: Ketorolac TAB * 10 MG TAB PO PRN (12:04)
--- NOTE | 2017-01-11 03:03 | DS ---
DISCHARGE SUMMARY: DATE OF ADMISSION: 01/07/17 DATE OF DISCHARGE: 01/10/17 ADMISSION DIAGNOSES: 1. Chronic obstructive pulmonary disease exacerbation. 2. Atypical chest pain. 3. Obstructive sleep apnea. 4. Paroxysmal atrial fibrillation. 5. Gastric ulcers. 6. Lung cancer. DISCHARGE DIAGNOSES: 1. Chronic obstructive pulmonary disease exacerbation. 2. Atypical chest pain. 3. Obstructive sleep apnea. 4. Paroxysmal atrial fibrillation. 5. Gastric ulcers. 6. Lung cancer. HOSPITAL COURSE: The patient is a 56-year-old gentleman who presented to [facility] with chief complaint of worsening chest pain that was pleuritic when he coughed with shortness of breath. The patient was admitted, put on DuoNeb nebulizer, Zithromax and Solu-Medrol. The patient did improve over the next 3 days. He still had the atypical chest pain. The patient was very anxious to leave on the date of discharge. He still had wheezing, but said he felt better and could take care himself at home. He was encouraged to try CPAP for obstructive sleep apnea, but again declined. He said he will stop smoking, was encouraged to do so. The patient will be discharged home on a steroid taper as well as his nebulizers he has at home and 2 more days of Zithromax. PHYSICAL EXAMINATION ON THE DATE OF DISCHARGE: Heart rate of 104 beats per minute, pulse is 92 beats per minute, respiratory rate 20 breaths per minute, pulse ox 94% on room air, temperature is 97.8 degrees. HEENT: Normocephalic, atraumatic. Pupils equal, round and reactive to light. Moist mucous membranes. Neck: Supple. No JVD, bruits, palpable thyroid, or lymphadenopathy. Chest: He has got bilateral diffuse wheezing. Cardiovascular: S1 and S2 appreciated. Regular rate and rhythm. Abdomen: Positive bowel sounds in all 4 quadrants. Soft, nontender, and nondistended. Extremities: No cyanosis, clubbing, or edema. +2 peripheral pulses bilaterally. Neuro: Alert and oriented x3. Moves all extremities. Skin: No rashes or abnormalities. STUDIES DONE WHILE IN THE HOSPITAL: Chest x-ray 01/07/17, impression: No acute cardiopulmonary disease. DISCHARGE MEDICATIONS: 1. Prednisone taper 40 mg p.o. daily for 2 days, then 20 mg p.o. daily for 2 days, then 10 mg p.o. daily for 2 days and 5 mg p.o. daily for 2 days then off. 2. Ropinirole 4 mg daily. 3. Ranitidine mg in the evening. 4. Protonix 20 mg daily. 5. Eliquis 5 mg twice daily. 6. Albuterol 2.5 mg inhaled q.4 hours. 7. Percocet 1 tab every 4 hours as needed for chest pain. 8. Robitussin with Codeine 5 cc every 4 hours as needed for chest pain. 9. MiraLAX 17 g p.o. daily as needed. 10. Docusate 100 mg twice daily as needed. 11. Zithromax 250 mg daily for 2 more days. DISCHARGE PLAN: The patient will be discharged to home. He will follow up with his PCP this week. He was encouraged to stop smoking, which he says he will do. The patient should return to the ED if symptoms worsen. TIME SPENT: Over 40 minutes were spent on this discharge, more than 25 minutes of which was spent in direct [id number] contact with the patient in evaluation , physical exam, counseling, and coordination of care. [id number]/[facility] #: [id number] MTDD
== END 2017-01-10 13:58 | disposition home or self-care (01) | DRG 191 ==
LOC: ED 12:18 → MEDTELE 14:33
PROVIDERS: ADMIT Internal Medicine; ATTEND Internal Medicine
DX: J44.1 Chronic obstructive pulmonary disease with (acute) exacerbation (principal); C34.90 Malignant neoplasm of unspecified part of unspecified bronchus or lung; I48.0 Paroxysmal atrial fibrillation; G47.33 Obstructive sleep apnea (adult) (pediatric); R07.89 Other chest pain; K25.9 Gastric ulcer, unspecified as acute or chronic, without hemorrhage or perforation; K44.9 Diaphragmatic hernia without obstruction or gangrene; F17.210 Nicotine dependence, cigarettes, uncomplicated; E66.9 Obesity, unspecified; R40.2412 Glasgow coma scale score 13-15, at arrival to emergency department; K21.9 Gastro-esophageal reflux disease without esophagitis; R00.0 Tachycardia, unspecified; Z79.01 Long term (current) use of anticoagulants; Z92.21 Personal history of antineoplastic chemotherapy; Z92.3 Personal history of irradiation; Z68.34 Body mass index [BMI] 34.0-34.9, adult; Z82.49 Family history of ischemic heart disease and other diseases of the circulatory system
CPT/HCPCS: 36415; 71020; 80048; 80053; 83605; 83880; 84443; 84484; 85025; 85610; 85730; 87070; 87205; 93005; 94640; 94760; 96372; 96374; 99213; 99406; A9270-GY; G0463; J0456; J1170; J2270; J2920; J7512; J7644

== ENCOUNTER 2018-07-08 14:30 | Emergency (ER) | payer OTHER ==
[2018-07-08] MEDS ORDERED: methylPREDNISolone 125 MG* 2 ML VIAL IV ONE (14:49)
[2018-07-08] MEDS ORDERED: Albuterol/Ipratropium NEB.SOL* Albuterol 2.5 MG/Ipratropium 0.5 MG 3 ML INH ONE (14:49)
[2018-07-08] MEDS ORDERED: Aspirin 81 mg CHEW TAB* 81 MG TAB.CHEW PO ONE (14:49)
[2018-07-08] MEDS ORDERED: Albuterol/Ipratropium NEB.SOL* Albuterol 2.5 MG/Ipratropium 0.5 MG 3 ML ONE (14:49)
[2018-07-08] MEDS ORDERED: methylPREDNISolone 125 MG* 2 ML VIAL ONE (14:50)
[2018-07-08] MEDS ORDERED: Aspirin 81 mg CHEW TAB* 81 MG TAB.CHEW ONE (14:50)
[2018-07-08 15:04] VITALS: BP 98/66
--- NOTE | 2018-07-08 15:04 | UC ---
Shortness of Breath HPI - HPI Summary HPI Summary: 57-year-old male with history of COPD and atrial fibrillation presents with his significant other reporting a 5 day history of difficulty breathing. Significant other reports that he has had some flu-like illness for the past 5 days including fever, chills, fatigue, nasal congestion, sore throat, and a productive cough for green sputum. He typically wears 3 L of oxygen via nasal cannula at home. States she has been checking his pulse ox at home and he has been as low as 86% on his oxygen. Patient reports chest tightness, palpitations , dyspnea, and nausea. Denies dizziness, lightheadedness, diaphoresis, edema, abdominal pain, vomiting, or diarrhea. - History of Current Complaint Chief Complaint: UCRespiratory Stated Complaint: SOB,COUGH,TIRED Hx Obtained From: Patient, Family/Nurse Chemical Dependency - Allergy/Home Medications Allergies/Adverse Reactions: Allergies Allergy/AdvReac Type Severity Reaction Status Date / Time No Known Allergies Allergy Verified 01/07/17 10:37 Home Medications: Home Medications Rivaroxaban TAB(*) [Xarelto 20 mg] 20 mg PO DAILY 07/08/18 [History Confirmed ] PMH/Surg Hx/FS Hx/Imm Hx Cardiovascular History: Hypertension, Atrial Fibrillation GI/ History: Gastroesophageal Reflux - Surgical History Surgical History: Yes Surgery Procedure, Year, and Place: peptic ulcer, cardiac effusion drainage opening present - Family History Known Family History: Positive: Other - POS: arrythmia - Social History Occupation: Retired Lives: With Family Alcohol Use: Weekly Alcohol Amount: 2 or 3 Substance Use Type: None Smoking Status (MU): Heavy Every Day Tobacco Smoker Type: Cigarettes Amount Used/How Often: 1 ppd Length of Time of Smoking/Using Tobacco: 40 years Have You Smoked in the Last Year: Yes Household Exposure Type: Cigarettes - Immunization History Most Recent Influenza Vaccination: 2014 Most Recent Pneumonia Vaccination: never Review of Systems All Other Systems Reviewed And Are Negative: Yes Constitutional: Positive: Fever, Chills, Fatigue Skin: Negative: Rash Eyes: Negative: Drainage, Eye Redness ENT: Positive: Sore Throat, Nasal Discharge, Sinus Congestion. Negative: Ear Ache, Sinus Pain/Tenderness Respiratory: Positive: Shortness Of Breath, Cough Cardiovascular: Positive: Palpitations, Chest Pain Gastrointestinal: Positive: Nausea. Negative: Abdominal Pain, Vomiting, Diarrhea Genitourinary: Positive: Negative Musculoskeletal: Positive: Negative Neurological: Positive: Negative Is Patient Immunocompromised?: No Physical Exam - Summary Physical Exam Summary: GENERAL APPEARANCE: Ill appearing male in mild respiratory distress, pursed lip breathing. EYES: Conjunctiva clear. No drainage. Vision is grossly intact. EARS: External auditory canals and tympanic membranes clear, hearing grossly intact. NOSE: Mild-moderate nasal congestion. No nasal discharge. THROAT: Mild pharyngeal erythema No tonsilar inflammation, swelling, exudate, or lesions. Uvula midline. Oral cavity normal. NECK: Neck supple, non-tender without lymphadenopathy. CARDIAC: Soft heart sounds. Normal S1 and S2. No S3, S4 or murmurs. Rhythm is regular. Tachycardic. There is no peripheral edema, cyanosis or pallor. Extremities are warm and well perfused. Capillary refill is less than 2 seconds. Peripheral pulses intact. LUNGS: Diminished bilateral breath sounds with diffuse wheezing, course crackles in the left lower base. Wet, loose, non-productive cough. ABDOMEN: Positive bowel sounds. Soft, nondistended, nontender. No guarding or rebound. No masses or hepatosplenomegally. MUSKULOSKELETAL: ROM intact to all extremities. No joint erythema or tenderness. Normal muscular development. Normal gait. SKIN: Skin normal color, texture and turgor with no lesions or eruptions. Triage Information Reviewed: Yes Vital Signs: Initial Vital Signs Temp 98.3 F 07/08/18 14:36 Pulse 118 07/08/18 14:36 Resp 33 07/08/18 14:36 BP 103/75 07/08/18 14:36 Pulse Ox 91 07/08/18 14:36 Vital Signs Reviewed: Yes Diagnostics - EKG Cardiac Rate: Tachycardia Cardiac Rhythm: Sinus: Normal Ectopy: None ST Segment: Non-Specific - Mild ST elevation in the inferior leads present in old EKG EKG Comparison: No Significant Change - Compared to EKG from 01/07/2017 Summary of EKG Findings: Sinus tachycardia rate of 116. Low voltage criteria. Minimal ST elevation in the inferior leads present in EKG from 01/07/2017. Shortness of Breath Dx - Course Course Of Treatment: 57-year-old male with history of COPD and atrial fibrillation presents with his significant other reporting a 5 day history of difficulty breathing. Significant other reports that he has had some flu-like illness for the past 5 days including fever, chills, fatigue, nasal congestion, sore throat, and a productive cough for green sputum. He typically wears 3 L of oxygen via nasal cannula at home. States she has been checking his pulse ox at home and he has been as low as 86% on his oxygen. Patient reports chest tightness, palpitations , dyspnea, and nausea. Denies dizziness, lightheadedness, diaphoresis, edema, abdominal pain, vomiting, or diarrhea. Afebrile. Tachycardic at a rate of 118. Tachypnic at a rate of 32. Pulse ox 91% on room air. Blood pressure within normal limits. Exam reveals an ill-appearing adult male in mild respiratory distress with a wet, loose, nonproductive cough, mild to moderate nasal congestion, mild pharyngeal erythema without tonsillar swelling or exudate , soft heart sounds with S1 and S2 without murmurs or extra sounds, diminished bilateral breath sounds with diffuse wheezing and coarse crackles in the left lower base. 12-lead EKG shows sinus tachycardia at a rate of 116 with low voltage criteria and some minimal ST elevation in the inferior leads which were present in his previous EKG on 01/07/2017. Patient was placed on 3 L of oxygen. He was given a DuoNeb. A saline lock was established and he was given a Solu- Medrol 125 mg IV. He was also given 324 mg of baby aspirin. I recommended the patient be evaluated in the emergency room at [facility] and that he transferred via ambulance. Patient is agreeable to this plan. Patient was transferred via [facility] in guarded condition. - Differential Dx/Diagnosis Differential Diagnosis/HQI/PQRI: CHF, COPD Exacerbation, MT, Pneumonia, Pulmonary Embolism, Unstable Angina Provider Diagnosis: Dyspnea, Chest tightness, History of COPD - Physician Notification/Consults Discussed Patient Care With: Lazaro Strong MD - [facility] ED Time Discussed With Above Provider: 14:55 Instructed by Provider To: Will See In ED Discharge - Sign-Out/Discharge Documenting (check all that apply): Patient Departure All imaging exams completed and their final reports reviewed: No Studies - Discharge Plan Condition: Guarded Disposition: TRANS HIGHER LVL OF CARE FAC Referrals: Ortiz Pollard, [employer] [Primary Care Provider] - - Billing Disposition and Condition Condition: GUARDED Disposition: Trans Higher Lvl of Care Fac
== END 2018-07-08 15:04 | disposition short-term general hospital (02) ==
LOC: UCCORT 14:30
DX: R30.0 Dysuria (principal); R07.89 Other chest pain; J44.9 Chronic obstructive pulmonary disease, unspecified; R00.2 Palpitations; R11.0 Nausea; J11.1 Influenza due to unidentified influenza virus with other respiratory manifestations; I48.91 Unspecified atrial fibrillation; I10 Essential (primary) hypertension; R06.82 Tachypnea, not elsewhere classified; R06.03 Acute respiratory distress; R05 Cough; R09.81 Nasal congestion; J39.2 Other diseases of pharynx; R00.0 Tachycardia, unspecified; F17.210 Nicotine dependence, cigarettes, uncomplicated; Z99.81 Dependence on supplemental oxygen; Z79.01 Long term (current) use of anticoagulants
CPT/HCPCS: 93005; 96374; 99213; A9270-GY; G0463; J2930

== ENCOUNTER 2024-03-18 09:36 | Inpatient (IN) ==
[2024-03-18] MEDS ORDERED: Albuterol/Ipratropium NEB.SOL (2.5/0.5 MG) 3 ML NEB.SOLN ONE (09:43)
[2024-03-18] MEDS: Albuterol/Ipratropium NEB.SOL (2.5/0.5 MG) 3 ML NEB.SOLN INH SCH ×3 (09:48→19:21)
[2024-03-18 10:06] LABS: ABS Basophils 0.1 10^3/uL (0.0-0.1); ABS Eosinophils 0.3 10^3/uL (0.0-0.5); ABS Lymphocytes 0.8 10^3/uL (1.0-4.8); ABS Monocytes 0.7 10^3/uL (0.0-1.1); ABS Neutrophils 7.7 10^3/uL (1.5-7.6); ABS Nucleated RBC 0.02 10^3/ul; Eosinophil % 2.9 %; Hematocrit 41.6 % (38-53); Hemoglobin 12.5 g/dL (13.2-16.3); Lymphocyte % 8.4 %; Mean Corpuscular Hemoglobin 23.6 pg (27-33); Mean Corpuscular Hgb Conc 30.1 g/dL (31-36); Mean Corpuscular Volume 78.5 fL (80-97); Mean Platelet Volume 9.3 fL (7.5-11.2); Nucleated Red Blood Cells % 0.2 %/100WBC (0.0-0.8); Platelet Count 189 10^3/uL (150-450); Red Blood Count 5.29 10^6/uL (4.06-5.63); Red Cell Distribution Width 19.7 % (12-17); White Blood Count 9.6 10^3/uL (3.6-10.2)
[2024-03-18 10:22] LABS: PO2 Arterial 75 mmHg (80-100)
[2024-03-18 10:25] LABS: PCO2 Arterial 99 mmHg (35-45)
[2024-03-18] MEDS: cefTRIAXone 1 gm/50 mL D5W 1 GM/50 ML BAG IV ONE (10:31)
[2024-03-18] MEDS: methylPREDNISolone SOD SUCC 125 mg 2 ML VIAL IV ONE (10:32)
[2024-03-18 10:41] LABS: Albumin/Globulin Ratio 1.6 (1-3); Creatinine, Serum 1.19 mg/dL (0.67-1.17); Globulin 3.1 g/dL (2-4); Potassium 4.5 mmol/L (3.5-5.0); Total Bilirubin 0.4 mg/dL (0.2-1.0); Total Protein 8.1 g/dL (6.4-8.9); eGFR CKD-EPI 68.2 (>60)
[2024-03-18] MEDS: Azithromycin 500 mg/250 ml NS 500 MG/250 ML BAG IVPB ONE (11:22)
[2024-03-18] MEDS ORDERED: Sulfur Hexaflouride MICROSPHR 25 MG VIAL IV PRN (12:07)
[2024-03-18 12:38] LABS: PO2 Arterial 82 mmHg (80-100)
[2024-03-18 12:44] LABS: PCO2 Arterial 95 mmHg (35-45)
[2024-03-18] MEDS: Iodixanol 320 (CONTRAST) 100 ML SDV IV ONE (15:35)
[2024-03-18 18:44] LABS: Urine Appearance Clear; Urine Bacteria Absent /HPF (Absent); Urine Bilirubin Negative (Negative); Urine Blood Negative (Negative); Urine Color Yellow; Urine Glucose Negative (Negative); Urine Ketones Negative (Negative); Urine Nitrite Negative (Negative); Urine Protein 1+ (>=30 mg/dL) (Negative); Urine Red Blood Cell 1+(3-5/hpf) /HPF (0-Trace); Urine Urobilinogen Negative (Negative); Urine White Blood Cell Trace(0-5/hpf) /HPF (0-Trace); Urine pH 5.5 (5.0-8.0)
[2024-03-18] MEDS: methylPREDNISolone SOD SUCC 40 mg/ml 1 ml VIAL IV SCH (21:22)
[2024-03-18] MEDS: Enoxaparin 40 MG/0.4 ML SYR SUBCUT SCH (21:22)
[2024-03-19 05:10] LABS: ABS Lymphocytes 0.4 10^3/uL (1.0-4.8); ABS Monocytes 0.1 10^3/uL (0.0-1.1); ABS Neutrophils 9.4 10^3/uL (1.5-7.6); ABS Nucleated RBC 0.01 10^3/ul; Hematocrit 36.1 % (38-53); Hemoglobin 10.8 g/dL (13.2-16.3); Lymphocyte % 3.9 %; Mean Corpuscular Hemoglobin 23.4 pg (27-33); Mean Corpuscular Hgb Conc 30.1 g/dL (31-36); Mean Corpuscular Volume 77.9 fL (80-97); Mean Platelet Volume 9.9 fL (7.5-11.2); Nucleated Red Blood Cells % 0.2 %/100WBC (0.0-0.8); Platelet Count 160 10^3/uL (150-450); Red Blood Count 4.63 10^6/uL (4.06-5.63); Red Cell Distribution Width 19.1 % (12-17); White Blood Count 9.9 10^3/uL (3.6-10.2)
[2024-03-19 06:36] LABS: Calcium 8.3 mg/dL (8.6-10.3); Creatinine, Serum 0.99 mg/dL (0.67-1.17); Magnesium 2.2 mg/dL (1.9-2.7); Phosphorus 3.5 mg/dL (2.5-5.0); Potassium 4.9 mmol/L (3.5-5.0); eGFR CKD-EPI 85.1 (>60)
[2024-03-19 06:56] LABS: Ferritin 7.9 ng/mL (24-336)
[2024-03-19 09:29] LABS: TSH Ultra Thyroid Stim Horm 4.6 mcIU/mL (0.34-5.60)
[2024-03-19] MEDS: cefTRIAXone 1 gm/50 mL D5W 1 GM/50 ML BAG IV SCH (10:02)
[2024-03-19] MEDS: Azithromycin 500 mg/250 ml NS 500 MG/250 ML BAG IVPB SCH (10:45)
[2024-03-19] MEDS: Ferric Gluconate IV 250 MG in NS 0.9% 250 ml 200 ML IVPB SCH (12:04)
[2024-03-21 01:23] LABS: PO2 Arterial 78 mmHg (80-100)
[2024-03-21 01:26] LABS: PCO2 Arterial 87 mmHg (35-45)
[2024-03-21] MEDS: Haloperidol 5 mg/ml SDV IV/IM 5 MG/ML AMP IV SLOW PU ONE ×2 (02:17→14:15)
[2024-03-21] MEDS: Haloperidol 5 mg/ml SDV IV/IM 5 MG/ML AMP IM ONE (03:08)
[2024-03-21] MEDS: Haloperidol 5 mg/ml SDV IV/IM 5 MG/ML AMP ONE ×2 (03:11→15:38)
[2024-03-21 11:24] LABS: Hematocrit 35.2 % (38-53); Hemoglobin 10.5 g/dL (13.2-16.3); Mean Corpuscular Hgb Conc 29.7 g/dL (31-36); Mean Corpuscular Volume 77.4 fL (80-97); Mean Platelet Volume 9.6 fL (7.5-11.2); Platelet Count 160 10^3/uL (150-450); Red Blood Count 4.55 10^6/uL (4.06-5.63); Red Cell Distribution Width 18.9 % (12-17)
[2024-03-21 11:57] LABS: Calcium 8.9 mg/dL (8.6-10.3); Creatinine, Serum 1.02 mg/dL (0.67-1.17); Magnesium 2.4 mg/dL (1.9-2.7); eGFR CKD-EPI 82.1 (>60)
[2024-03-21] MEDS: methylPREDNISolone SOD SUCC 40 mg/ml 1 ml VIAL IV SCH (12:10)
[2024-03-21 12:18] LABS: Vitamin D Total 25(OH) 21.8 ng/mL (20-50)
[2024-03-21 12:31] LABS: ABS Lymphocytes 0.6 10^3/uL (1.0-4.8); ABS Monocytes 1.3 10^3/uL (0.0-1.1); ABS Nucleated RBC 0.03 10^3/ul; Eosinophil % 0.1 %; Hypochromasia 2+; Lymphocyte % 3.1 %; Microcytosis 1+; Nucleated Red Blood Cells % 0.1 %/100WBC (0.0-0.8)
[2024-03-21] MEDS ORDERED: Zosyn per Pharmacy NOTE FOLLOW UP SCH (14:00)
[2024-03-21] MEDS: Piperacillin/Tazobac 3.375 BAG 3.375 GM/100 ML BAG IV ONE (15:37)
[2024-03-21] MEDS ORDERED: ZOSYN 3.375 GM Q8H per EXTENDED INFUSION IV SCH (19:30)
[2024-03-22 04:56] LABS: PO2 Arterial 77 mmHg (80-100)
[2024-03-22 05:00] LABS: PCO2 Arterial 82 mmHg (35-45)
[2024-03-22] MEDS ORDERED: Senna TAB 8.6 mg TAB PO PRN (08:47)
[2024-03-22 09:05] LABS: ABS Lymphocytes 0.6 10^3/uL (1.0-4.8); ABS Monocytes 0.9 10^3/uL (0.0-1.1); ABS Neutrophils 12.4 10^3/uL (1.5-7.6); ABS Nucleated RBC 0.01 10^3/ul; Hematocrit 38.2 % (38-53); Hemoglobin 11.4 g/dL (13.2-16.3); Lymphocyte % 3.9 %; Mean Corpuscular Hemoglobin 23.2 pg (27-33); Mean Corpuscular Hgb Conc 29.8 g/dL (31-36); Mean Corpuscular Volume 77.8 fL (80-97); Mean Platelet Volume 9.5 fL (7.5-11.2); Nucleated Red Blood Cells % 0.1 %/100WBC (0.0-0.8); Platelet Count 179 10^3/uL (150-450); Red Blood Count 4.91 10^6/uL (4.06-5.63); Red Cell Distribution Width 18.4 % (12-17); White Blood Count 13.9 10^3/uL (3.6-10.2)
[2024-03-22] MEDS: Polyethylene Glycol 3350 17 GM PACKET PO SCH (09:29)
[2024-03-22 09:45] LABS: Calcium 9.2 mg/dL (8.6-10.3); Creatinine, Serum 1.02 mg/dL (0.67-1.17); Potassium 4.9 mmol/L (3.5-5.0); eGFR CKD-EPI 82.1 (>60)
[2024-03-22] MEDS: cefTRIAXone 1 gm/50 mL D5W 1 GM/50 ML BAG IV SCH (10:47)
[2024-03-22 11:37] LABS: Urine Appearance Clear; Urine Bilirubin Negative (Negative); Urine Blood Negative (Negative); Urine Color Light-Yellow; Urine Glucose Negative (Negative); Urine Ketones Negative (Negative); Urine Nitrite Negative (Negative); Urine Protein Negative (Negative); Urine Specific Gravity 1.009 (1.002-1.030); Urine Urobilinogen Negative (Negative); Urine pH 5.5 (5.0-8.0)
[2024-03-24] MEDS ORDERED: Albuterol HFA INHALER 8 gm MDI INH PRN (07:56)
[2024-03-24] MEDS: CMC:FLUTICAS/UMECLI/VILANT 200-62.5-25 MDI (NF) INH SCH (08:47)
[2024-03-24 09:30] LABS: Hemoglobin 11.8 g/dL (13.2-16.3); Mean Corpuscular Volume 77.3 fL (80-97); Mean Platelet Volume 9.5 fL (7.5-11.2); Platelet Count 176 10^3/uL (150-450); Red Blood Count 4.92 10^6/uL (4.06-5.63); Red Cell Distribution Width 18.7 % (12-17); White Blood Count 10.8 10^3/uL (3.6-10.2)
[2024-03-24 10:11] LABS: Calcium 8.8 mg/dL (8.6-10.3); Creatinine, Serum 1.04 mg/dL (0.67-1.17); Potassium 4.2 mmol/L (3.5-5.0); eGFR CKD-EPI 80.2 (>60)
[2024-03-24 10:12] LABS: ABS Eosinophils 0.1 10^3/uL (0.0-0.5); ABS Lymphocytes 1.1 10^3/uL (1.0-4.8); ABS Monocytes 0.6 10^3/uL (0.0-1.1); ABS Nucleated RBC 0.03 10^3/ul; Eosinophil % 0.7 %; Lymphocyte % 9.8 %; Nucleated Red Blood Cells % 0.2 %/100WBC (0.0-0.8)
[2024-03-24] MEDS: Albuterol/Ipratropium NEB.SOL (2.5/0.5 MG) 3 ML NEB.SOLN INH PRN (14:31)
[2024-03-25] MEDS: Metoprolol Tartrate 5 mg VIAL 5 ml VIAL (1 mg/ml) IV PRN (08:44)
[2024-03-25] MEDS ORDERED: Magnesium Hydroxide LIQ 30 ML UDC PO PRN (08:57)
[2024-03-25] MEDS ORDERED: Senna TAB 8.6 mg TAB PO PRN (08:57)
[2024-03-25] MEDS: Magnesium Hydroxide LIQ 30 ML UDC PO SCH (10:08)
[2024-03-25 10:17] VITALS: BP 155/86
== END 2024-03-25 13:05 | disposition home health service (06) | DRG 190 ==
LOC: ED 09:36 → EDHOLD 09:36 → MEDTELE 11:45 → ICU 12:07 → SUATTDRO 03-19 04:45 → MEDTELE 03-19 16:10
PROVIDERS: ADMIT Student in an Organized Health Care Education/Training Program; ATTEND Student in an Organized Health Care Education/Training Program